=== PATIENT | female | born 1985 | race African-American/Black ===

== ENCOUNTER 2020-03-04 14:25 | Emergency (ER) | payer SELFPAY ==
[~2020-03-04] VITALS: Ht 180.3 cm; Wt 124.7 kg
[2020-03-04 14:35] VITALS: BP 146/86
== END 2020-03-04 17:41 | disposition home or self-care (01) ==
LOC: ER 14:25
DX: S46.912A Strain of unspecified muscle, fascia and tendon at shoulder and upper arm level, left arm, initial encounter (principal); X58.XXXA Exposure to other specified factors, initial encounter; Y93.89 Activity, other specified; Y92.89 Other specified places as the place of occurrence of the external cause; Y99.8 Other external cause status
CPT/HCPCS: 93971